=== PATIENT | male | born 1995 | race Two or more races ===

== ENCOUNTER 2017-11-14 12:43 | Inpatient (IN) | payer SELFPAY ==
[~2017-11-14] VITALS: Ht 172.7 cm; Wt 77.6 kg
[2017-11-14] MEDS ORDERED: IBUPROFEN 600MG TABLET PO ONE (15:15)
[2017-11-14] MEDS ORDERED: SODIUM CHLORIDE 0.9% 1000ML BAG (SEPSIS BOLUS) IV ONE (15:15)
[2017-11-14] MEDS ORDERED: ACETAMINOPHEN 325MG TABLET PO STA (15:15)
[2017-11-14 17:00] LABS: BASOPHILS % 0.6 % (0.0-2.0); HEMATOCRIT. 39.2 % (42.0-52.0); HEMOGLOBIN. 13.5 g/dL (14.0-18.0); LYMPHOCYTES % 13.1 % (20.0-50.0); MEAN CORPUSCULAR HEMOGLOBIN 30.5 pg (28.0-32.0); MEAN CORPUSCULAR VOLUME 88.5 fL (80.0-94.0); MEAN PLATELET VOLUME 10.8 fl (7.4-10.4); MONOCYTES % 6.4 % (2.0-8.0); NEUTROPHILS % 79.9 % (40.0-76.0); PLATELET 87 x1000/uL (130-400); RED BLOOD CELL COUNT 4.43 mill/uL (4.7-6.1); RED CELL DISTRIBUTION WIDTH 13.6 % (11.6-14.6)
[2017-11-14 17:11] LABS: CHLORIDE 98 mEq/L (98-107)
[2017-11-14] MEDS ORDERED: LEVOFLOXACIN 750MG PREMIX 150 ML IV ONE (17:45)
[2017-11-14 18:14] LABS: CLARITY URINE CLEAR (CLEAR); COLOR URINE DARK YELLOW (YELLOW); KETONES URINE TRACE (NEGATIVE); LEUKOCYTE ESTERASE URINE 1+ (NEGATIVE); NITRITE URINE NEGATIVE (NEGATIVE); OCCULT BLOOD URINE NEGATIVE (NEGATIVE); PH URINE 5.5 (4.5-8.0); PROTEIN URINE 1+ (NEGATIVE); SPECIFIC GRAVITY URINE 1.025 (1.005-1.030)
[2017-11-14 20:00] VITALS: BP_SYST 102; BP_DIAS 60; BP_DIAS 62
[2017-11-14 20:10] LABS: HEPATITIS B SURFACE ANTIGEN NEGATIVE
[2017-11-14] MEDS ORDERED: [UNRECOGNIZED DRUG - CODE] PO (20:32)
[2017-11-14 20:38] LABS: HEPATITIS B CORE AB IGM NEGATIVE
[2017-11-14 20:40] LABS: HEPATITIS A AB IGM NEGATIVE (NEGATIVE)
[2017-11-14] MEDS ORDERED: NA PHOS,M-B/NA PHOS,DI-BA ENEMA 118ML PR PRN (23:30)
[2017-11-14] MEDS ORDERED: DOCUSATE SODIUM 100MG CAPSULE PO PRN (23:30)
[2017-11-14] MEDS ORDERED: ACETAMINOPHEN 650MG SUPP PR PRN (23:30)
[2017-11-14] MEDS ORDERED: DIPHENHYDRAMINE 50MG/ML VIAL IV PRN (23:30)
[2017-11-14] MEDS ORDERED: MAGNESIUM/ALUMINUM HYDROXIDE/SIMETHICONE 30ML UDC PO PRN (23:30)
[2017-11-14] MEDS ORDERED: IPRATROPIUM/ALBUTEROL 0.5-3(2.5)MG/3ML NEB INH PRN (23:30)
[2017-11-14] MEDS ORDERED: CLONIDINE 0.1MG TABLET PO PRN (23:30)
[2017-11-14] MEDS ORDERED: ACETAMINOPHEN 650MG/20.3ML UDC GT PRN (23:30)
[2017-11-14] MEDS ORDERED: GUAIFENESIN 200MG/10ML SUGAR FREE UDC PO PRN (23:30)
[2017-11-15] VITALS: BP 105/64
[2017-11-15 00:18] LABS: CREATINE KINASE 98 IU/L (39-308)
[2017-11-15] MEDS: PIPERACILLIN/TAZ 3.375G PREMIX 50 ML IV SCH ×3 (01:52→17:21)
[2017-11-15] MEDS: SODIUM CHLORIDE 0.45% 1,000 ML IV SCH ×3 (01:53→17:21)
[2017-11-15 04:00] VITALS: BP 110/64
[2017-11-15 04:30] LABS: CLARITY URINE CLEAR (CLEAR); COLOR URINE YELLOW (YELLOW); KETONES URINE NEGATIVE (NEGATIVE); LEUKOCYTE ESTERASE URINE NEGATIVE (NEGATIVE); NITRITE URINE NEGATIVE (NEGATIVE); OCCULT BLOOD URINE NEGATIVE (NEGATIVE); PROTEIN URINE NEGATIVE (NEGATIVE); SPECIFIC GRAVITY URINE 1.013 (1.005-1.030)
[2017-11-15 05:29] LABS: *AMPHETAMINES SCREEN URINE NEGATIVE (NEGATIVE); *BARBITURATES SCREEN URINE NEGATIVE (NEGATIVE); *BENZODIAZEPINES SCREEN URINE NEGATIVE (NEGATIVE); *COCAINE SCREEN URINE NEGATIVE (NEGATIVE); METHADONE URINE SCREEN NEGATIVE (NEGATIVE); OPIATES URINE SCREEN NEGATIVE (NEGATIVE)
[2017-11-15 05:30] LABS: CANNABINOID URINE SCREEN NEGATIVE (NEGATIVE); PHENCYCLIDINE URINE SCREEN NEGATIVE (NEGATIVE)
[2017-11-15] MEDS: SODIUM CHLORIDE 0.9% INJ 3ML FLUSH IVF SCH ×4 (06:00→23:53)
[2017-11-15] MEDS: HYDROCODONE/ACETAMINOPHEN 5/325MG TABLET PO PRN ×2 (06:50→17:51)
[2017-11-15 08:00] VITALS: BP 102/57
[2017-11-15 10:40] LABS: HEMATOCRIT. 37.2 % (42.0-52.0); HEMOGLOBIN. 13.2 g/dL (14.0-18.0); MEAN CORPUSCULAR VOLUME 87.6 fL (80.0-94.0); MEAN PLATELET VOLUME 10.3 fl (7.4-10.4); PLATELET 71 x1000/uL (130-400); RED BLOOD CELL COUNT 4.25 mill/uL (4.7-6.1); RED CELL DISTRIBUTION WIDTH 13.9 % (11.6-14.6)
[2017-11-15 11:41] LABS: CHLORIDE 104 mEq/L (98-107)
[2017-11-15 11:54] LABS: CREATINE KINASE 97 IU/L (39-308)
[2017-11-15 12:00] VITALS: BP 106/59
[2017-11-15 12:17] LABS: PLATELET ESTIMATE DECREASED
[2017-11-15] MEDS: ACETAMINOPHEN 325MG TABLET PO PRN ×2 (13:14→20:23)
[2017-11-15 16:00] VITALS: BP 114/65
[2017-11-15 20:00] VITALS: BP 108/59
[2017-11-15] MEDS: CEFTRIAXONE 1 G PREMIX 50 ML IV SCH (23:53)
[2017-11-16] VITALS: BP 105/52
[2017-11-16 04:00] VITALS: BP 99/46
[2017-11-16] MEDS: ACETAMINOPHEN 325MG TABLET PO PRN ×2 (04:37→11:44)
[2017-11-16] MEDS: SODIUM CHLORIDE 0.9% INJ 3ML FLUSH IVF SCH ×3 (06:15→21:17)
[2017-11-16] MEDS: SODIUM CHLORIDE 0.45% 1,000 ML IV SCH ×5 (06:52→21:17)
[2017-11-16 07:46] LABS: CHLORIDE 103 mEq/L (98-107)
[2017-11-16 08:00] VITALS: BP 97/57
[2017-11-16 08:06] LABS: BASOPHILS % 0.3 % (0.0-2.0); HEMATOCRIT. 35.9 % (42.0-52.0); HEMOGLOBIN. 12.6 g/dL (14.0-18.0); LYMPHOCYTES % 18.7 % (20.0-50.0); MEAN CORPUSCULAR HEMOGLOBIN 30.7 pg (28.0-32.0); MEAN CORPUSCULAR VOLUME 87.7 fL (80.0-94.0); MEAN PLATELET VOLUME 10.7 fl (7.4-10.4); MONOCYTES % 2.7 % (2.0-8.0); NEUTROPHILS % 78.3 % (40.0-76.0); PLATELET 74 x1000/uL (130-400); RED BLOOD CELL COUNT 4.09 mill/uL (4.7-6.1)
[2017-11-16] MEDS ORDERED: IBUPROFEN 600MG TABLET PO PRN (18:00)
[2017-11-16 20:00] VITALS: BP 107/53
[2017-11-16] MEDS: VANCOMYCIN 1,250 MG in SODIUM CHLORIDE 0.9% 250 ML IV SCH (20:37)
[2017-11-16] MEDS: CEFTRIAXONE 1 G PREMIX 50 ML IV SCH (21:16)
[2017-11-17] VITALS: BP 98/82
[2017-11-17] MEDS: DOXYCYCLINE HYCLATE 100MG CAPSULE PO SCH ×3 (00:56→21:36)
[2017-11-17] MEDS: VANCOMYCIN 1,250 MG in SODIUM CHLORIDE 0.9% 250 ML IV SCH ×2 (02:56→09:55)
[2017-11-17 04:00] VITALS: BP 100/68
[2017-11-17] MEDS: SODIUM CHLORIDE 0.45% 1,000 ML IV SCH ×3 (04:38→17:06)
[2017-11-17] MEDS: SODIUM CHLORIDE 0.9% INJ 3ML FLUSH IVF SCH ×3 (06:00→21:06)
[2017-11-17 06:56] LABS: BASOPHILS % 0.4 % (0.0-2.0); EOSINOPHILS % 0.7 % (0.0-5.0); HEMATOCRIT. 36.3 % (42.0-52.0); HEMOGLOBIN. 12.5 g/dL (14.0-18.0); LYMPHOCYTES % 20.3 % (20.0-50.0); MEAN CORPUSCULAR HEMOGLOBIN 30.4 pg (28.0-32.0); MEAN CORPUSCULAR VOLUME 87.9 fL (80.0-94.0); MEAN PLATELET VOLUME 10.8 fl (7.4-10.4); NEUTROPHILS % 71.6 % (40.0-76.0); PLATELET 98 x1000/uL (130-400); RED BLOOD CELL COUNT 4.13 mill/uL (4.7-6.1); RED CELL DISTRIBUTION WIDTH 14.2 % (11.6-14.6)
[2017-11-17 07:24] LABS: CHLORIDE 108 mEq/L (98-107)
[2017-11-17 07:43] LABS: HAPTOGLOBIN < 31 mg/dL (30-200)
[2017-11-17 08:00] VITALS: BP 116/72
[2017-11-17 12:00] VITALS: BP 96/45
[2017-11-17 16:00] VITALS: BP 106/62
[2017-11-17 20:00] VITALS: BP 99/55
[2017-11-17] MEDS: CEFTRIAXONE 1 G PREMIX 50 ML IV SCH (21:06)
[2017-11-18] VITALS: BP 102/64
[2017-11-18] MEDS: SODIUM CHLORIDE 0.45% 1,000 ML IV SCH ×2 (00:38→07:10)
[2017-11-18 04:00] VITALS: BP 108/56
[2017-11-18 04:14] LABS: EBV NUCLEAR IGG 94.5 U/mL (0.0-17.9); EBV VIRAL CAPSID AB IGM <36.0 U/mL (0.0-35.9)
[2017-11-18] MEDS: SODIUM CHLORIDE 0.9% INJ 3ML FLUSH IVF SCH (06:00)
[2017-11-18 07:28] LABS: BASOPHILS % 0.4 % (0.0-2.0); EOSINOPHILS % 2.1 % (0.0-5.0); HEMOGLOBIN. 12.6 g/dL (14.0-18.0); LYMPHOCYTES % 40.6 % (20.0-50.0); MEAN CORPUSCULAR HEMOGLOBIN 30.1 pg (28.0-32.0); NEUTROPHILS % 44.9 % (40.0-76.0); PLATELET 158 x1000/uL (130-400); RED CELL DISTRIBUTION WIDTH 14.2 % (11.6-14.6)
[2017-11-18 08:00] VITALS: BP_SYST 104; BP_SYST 111; BP_DIAS 58; BP_DIAS 65
[2017-11-18 08:20] LABS: CHLORIDE 110 mEq/L (98-107)
[2017-11-18] MEDS: DOXYCYCLINE HYCLATE 100MG CAPSULE PO SCH (09:13)
[2017-11-18 09:38] VITALS: BP 104/65
[2017-11-19 13:06] LABS: PARVOVIRUS B19 HUMAN IGG 5.1 index (0.0-0.8); PARVOVIRUS B19 HUMAN IGM 0.1 index (0.0-0.8)
== END 2017-11-18 11:00 | disposition home or self-care (01) | DRG 722 ==
LOC: ER 14:54 → 6EST 18:33 → ENRESERV 19:12 → 5WST 11-16 10:53
PROVIDERS: ADMIT Family Medicine; ATTEND Family Medicine
DX: R50.9 Fever, unspecified (principal); D61.818 Other pancytopenia; I95.9 Hypotension, unspecified; R82.2 Biliuria; R16.0 Hepatomegaly, not elsewhere classified; K80.20 Calculus of gallbladder without cholecystitis without obstruction; R74.0 Nonspecific elevation of levels of transaminase and lactic acid dehydrogenase [LDH]; N20.0 Calculus of kidney; Z87.891 Personal history of nicotine dependence; Z79.899 Other long term (current) drug therapy
CPT/HCPCS: 36415; 71045; 74176; 74181; 76705; 80048; 80053; 80076; 80305; 81003; 82550; 83010; 83605; 83615; 85025; 86664; 86665; 86705; 86709; 86747; 86803; 86880; 87040; 87086; 87186; 87340; 87804; 93005; 93970; 96361; 96365; 99291; C1893; J0696; J1956; J2543; J3370; J7030; J7042; J7050

== ENCOUNTER 2021-04-14 04:09 | Emergency (ER) | payer MEDICAID ==
[~2021-04-14] VITALS: Ht 170.2 cm; Wt 87.0 kg
[~2021-04-14 04:09] MED LIST: [UNRECOGNIZED DRUG - CODE] PO
[2021-04-14 04:54] LABS: BASOPHILS % 0.6 % (0.0-2.0); EOSINOPHILS % 3.4 % (0.0-5.0); HEMATOCRIT. 43.4 % (42.0-52.0); LYMPHOCYTES % 24.8 % (20.0-50.0); MEAN CORPUSCULAR HEMOGLOBIN 31.1 pg (28.0-32.0); MEAN PLATELET VOLUME 8.9 fl (7.4-10.4); MONOCYTES % 8.5 % (2.0-8.0); NEUTROPHILS % 62.7 % (40.0-76.0); PLATELET 295 x1000/uL (130-400); RED BLOOD CELL COUNT 4.83 mill/uL (4.7-6.1); RED CELL DISTRIBUTION WIDTH 13.7 % (11.6-14.6)
[2021-04-14 04:58] LABS: CHLORIDE 108 mEq/L (98-107)
[2021-04-14 05:49] LABS: CLARITY URINE CLEAR (CLEAR); COLOR URINE YELLOW (YELLOW); KETONES URINE TRACE (NEGATIVE); LEUKOCYTE ESTERASE URINE NEGATIVE (NEGATIVE); NITRITE URINE NEGATIVE (NEGATIVE); OCCULT BLOOD URINE NEGATIVE (NEGATIVE); PROTEIN URINE TRACE (NEGATIVE); SPECIFIC GRAVITY URINE 1.033 (1.005-1.030)
[2021-04-14] MEDS ORDERED: HYDROCODONE/ACETAMINOPHEN 5/325MG TABLET PO ONE (06:45)
[2021-04-14 06:58] VITALS: BP_DIAS 98
[2021-04-14] MEDS ORDERED: HYDR-4001 MT (08:23)
[2021-04-14 08:51] VITALS: BP_SYST 62
== END 2021-04-14 08:51 | disposition home or self-care (01) ==
LOC: ER 04:09
DX: K80.50 Calculus of bile duct without cholangitis or cholecystitis without obstruction (principal); Z87.19 Personal history of other diseases of the digestive system
CPT/HCPCS: 36415; 76700; 80053; 81003; 85025; 99284

== ENCOUNTER 2021-12-07 19:21 | Emergency (ER) | payer MEDICAID ==
[~2021-12-07] VITALS: Ht 170.2 cm; Wt 86.0 kg
[~2021-12-07 19:21] MED LIST changes: +HYDR-4001 MT
[2021-12-07 19:57] VITALS: BP 123/78
[2021-12-07] MEDS ORDERED: EMTR1TAB12 PO (19:57)
== END 2021-12-07 23:35 | disposition left against medical advice (07) ==
LOC: ER 19:21
DX: Z53.21 Procedure and treatment not carried out due to patient leaving prior to being seen by health care provider (principal); R10.9 Unspecified abdominal pain
CPT/HCPCS: 76705; 99284

== ENCOUNTER 2023-06-06 07:18 | Emergency (ER) | payer MEDICAID ==
[~2023-06-06] VITALS: Ht 175.3 cm; Wt 68.0 kg
[~2023-06-06 07:18] MED LIST changes: +EMTR1TAB12 PO
[2023-06-06 07:21] VITALS: O2SAT 99
[2023-06-06] MEDS ORDERED: AMOX1TAB16 MT (08:14)
[2023-06-06] MEDS ORDERED: TETANUS, DIPHTHERIA, PERTUSSIS VAC/PF 0.5ML (>10YR OLD) IM ONE (08:15)
[2023-06-06 08:52] VITALS: BP 112/78; PULSE 89; RESP 20; TEMP 98.2
== END 2023-06-06 08:53 | disposition home or self-care (01) ==
LOC: ER 07:40
DX: S71.152A Open bite, left thigh, initial encounter (principal); W54.0XXA Bitten by dog, initial encounter; Y93.89 Activity, other specified; Y92.89 Other specified places as the place of occurrence of the external cause; Y99.8 Other external cause status
CPT/HCPCS: 99283; Z7610; 90715

== ENCOUNTER 2025-04-22 13:16 | Emergency (ER) | payer MEDICAID ==
[~2025-04-22] VITALS: Ht 167.6 cm; Wt 78.0 kg
[~2025-04-22 13:16] MED LIST changes: +AMOX1TAB16 MT
[2025-04-22 13:27] VITALS: O2SAT 99
[2025-04-22] MEDS ORDERED: BACITRACIN ZINC OINT UDPKT TOP ONE (14:15)
[2025-04-22] MEDS ORDERED: LIDOCAINE HCL 1% 20ML VIAL INFIL ONE (14:15)
[2025-04-22] MEDS ORDERED: BO1 TP (15:04)
[2025-04-22 15:30] VITALS: BP 147/98; PULSE 103; RESP 17; TEMP 36.8; O2SAT 99
[2025-04-22] MEDS: ACETAMINOPHEN 500MG TABLET PO ONE (15:33)
[2025-04-22] MEDS: TETANUS, DIPHTHERIA, PERTUSSIS VAC/PF 0.5ML (>10YR OLD) IM ONE (15:35)
== END 2025-04-22 15:38 | disposition home or self-care (01) ==
LOC: ER 13:16
DX: S81.011A Laceration without foreign body, right knee, initial encounter (principal); W45.8XXA Other foreign body or object entering through skin, initial encounter; Y93.89 Activity, other specified; Y92.89 Other specified places as the place of occurrence of the external cause; Y99.8 Other external cause status
CPT/HCPCS: 73560; 12001; 99283; J2003; Z7610 ×2; 90715